=== PATIENT | male | born 2000 | race Caucasian/White ===

== ENCOUNTER 2020-01-29 20:35 | Inpatient (IN) | payer OTHER ==
[~2020-01-29] VITALS: Ht 182.9 cm; Wt 105.1 kg
[2020-01-29] MEDS ORDERED: IBUPROFEN 600 MG TAB PO ONE (21:15)
[2020-01-29 21:32] LABS: HEMATOCRIT 44.4 % (42.0-52.0); HEMOGLOBIN 15.8 g/dl (13.5-17.5); MEAN CORPUSCULAR HGB CONC 35.6 g/dl (32.0-36.5); MEAN CORPUSCULAR VOLUME 84.4 fl (80.0-96.0); PLATELET COUNT, AUTOMATED 284 10^3/uL (150-450); RED BLOOD COUNT 5.26 10^6/uL (4.30-6.10); WHITE BLOOD COUNT 9.4 10^3/uL (4.0-10.0)
[2020-01-29 22:06] LABS: ACETAMINOPHEN LEVEL < 2.0 UG/ML (10.0-30.0); ALBUMIN 3.6 GM/DL (3.2-5.2); ALT/SGPT 37 U/L (12-78); BILIRUBIN,DIRECT 0.1 MG/DL (0.0-0.2); BILIRUBIN,TOTAL 0.4 MG/DL (0.2-1.0); BLOOD UREA NITROGEN 19 MG/DL (7-18); CALCIUM LEVEL 8.6 MG/DL (8.5-10.1); CARBON DIOXIDE LEVEL 24 MEQ/L (21-32); CHLORIDE LEVEL 107 MEQ/L (98-107); CREATININE FOR GFR 1.11 MG/DL (0.70-1.30); ETHYL ALCOHOL (ETHANOL) < 0.003 % (0.000-0.010); GLUCOSE, FASTING 114 MG/DL (70-100); POTASSIUM SERUM 3.6 MEQ/L (3.5-5.1); SALICYLATE LEVEL 1.8 MG/DL (5.0-30.0); SODIUM LEVEL 139 MEQ/L (136-145); TOTAL PROTEIN 6.4 GM/DL (6.4-8.2)
[2020-01-29 22:41] LABS: AMPHETAMINES LEVEL URINE NEGATIVE (NEGATIVE); BARBITURATES URINE NEGATIVE (NEGATIVE); BENZODIAZEPINES URINE NEGATIVE (NEGATIVE); CANNABINOIDS URINE NEGATIVE (NEGATIVE); COCAINE METABOLITE URINE NEGATIVE (NEGATIVE); METHADONE URINE NEGATIVE (NEGATIVE); OPIATES URINE NEGATIVE (NEGATIVE); PHENCYCLIDINE URINE NEGATIVE (NEGATIVE)
[2020-01-30] MEDS ORDERED: MOM 30ML SUSPENSION UDC PO PRN (01:30)
[2020-01-30] MEDS ORDERED: ACETAMINOPHEN TAB 650MG DOSE (2X325MG) PO PRN (01:30)
[2020-01-30] MEDS ORDERED: traZODone 50 MG TAB PO PRN (01:30)
[2020-01-30] MEDS ORDERED: MAALOX 30 ML SUSP *UDC PO PRN (01:30)
[2020-01-30 05:21] VITALS: BP 143/77
[2020-01-30 06:34] VITALS: BP 143/77
--- NOTE | 2020-01-30 09:15 | HPEPDOC ---
General Date of Admission January 30, 2020 at 01:23 Date of Service: January 30, 2020 Chief Complaint The patient is a 19-year-old male who presented to the hospital with suicidal ideation History of Present Illness Patient is a 19-year-old male with no significant past medical history who presented to the hospital after experiencing depressed mood and suicidal ideation. Patient was admitted inpatient mental health unit under the care of psychiatry. Hospitalist service was consult for medical screening evaluation. Currently patient denies any headache, nausea, vomiting, chest pain, shortness of breath, palpitations, cough, abdominal pain, constipation, diarrhea, discomfort with urination or any recent fevers or chills. Patient reports that her appetite is normal and they have not experienced any recent changes in her weight. Home Medications No Active Prescriptions or Reported Meds Allergies Coded Allergies: epinephrine (Verified Allergy, Unknown, 01/29/20) Past Medical History Medical History Patient denies any prior medical history Surgical History Patient denies any prior surgical history He does report that he was advised to get a fistula around his umbilicus corrected almost 1 year ago Family History - Mother with history of hypoglycemia - Father with an unknown past medical history - No history of malignancies Social History - Denies the use of illicit drugs; patient reports associated use of alcohol. He has been a smoker of less than one PPD for 1 year - Denies recent travel or sick contacts - Lives alone - Occupation; patient was in the in [employer] Review of Systems Other systems 10 point review of systems complete, all negative otherwise stated in HPI Vital Signs - Vitals: BP 143/77, HR 69, RR 14, Sat 99%RA, Temp 96.8F - General: Lying in bed, Appears comfortable, Speaking in full sentences, AAOx3 - HEENT: NC, AT, PERRLA - CVS: RRR, +S1S2 - Lungs: Fair air entry bilaterally, No appreciable wheezing / rales / rhonchi - Abdomen: Soft, Non-distended, Non-tender, umbilicus does not reveal any evidence of discharge - Extremities: No lower extremity edema, No calf tenderness - Neuro: No focal motor or sensory deficit - Skin: No visible rashes Laboratory Data Labs 24H Laboratory Tests 2 01/29/20 21:22: Nucleated Red Blood Cells % (auto) 0.0, Anion Gap 8, Calcium Level 8.6, Total Bilirubin 0.4, Direct Bilirubin 0.1, Aspartate Amino Transf (AST/SGOT) 45H, Alanine Aminotransferase (ALT/SGPT) 37, Alkaline Phosphatase 66, Total Protein 6.4, Albumin 3.6, Albumin/Globulin Ratio 1.29, Thyroid Stimulating Hormone (TSH) 0.960, Salicylates Level 1.8L, Acetaminophen Level < 2.0L, Ethyl Alcohol Level < 0.003 01/29/20 22:03: Urine Opiates Screen NEGATIVE, Urine Methadone Screen NEGATIVE, Urine Barbiturates Screen NEGATIVE, Urine Phencyclidine Screen NEGATIVE, Urine Amphetamines Screen NEGATIVE, Urine Benzodiazepines Screen NEGATIVE, Urine Cocaine Metabolite Screen NEGATIVE, Urine Cannabinoids Screen NEGATIVE CBC/BMP Laboratory Tests 01/29/20 21:22 Plan / VTE VTE Prophylaxis Ordered?: Yes Plan Plan Suicidal ideation - Patient was admitted inpatient mental health and under the care of psychiatry - This is currently being managed by primary psychiatric team Elevation of AST - Will check hepatitis profile - Will have outpatient follow-up with primary care provider DVT prophylaxis - c/w early ambulation Female roller picker was present throughout the duration of this history and physical examination Thank you for this consultation; please reconsult as needed AMBREEN SWEENEY MD January 30, 2020 09:15
[2020-01-30] MEDS: NICOTINE 21MG/24HR 1 EA TRANSDERMAL TD SCH (09:18)
--- NOTE | 2020-01-30 11:51 | MHHPEPDOC ---
[facility] History & Physical History and Physical DATE OF ADMISSION: January 30, 2020 at 01:23 New Patient Wilfredo Rodriguez MRN: N/A Date of : N/A Date of Service: 01/30/2020 Chief Complaint "I am just suicidal, not crazy." History of Present Illness The patient a 19-year-old young man with no notable psychiatric history, presents reporting that he is suicidal and has been for many years. He reports that he has become upset and irritated as he has been told to engage with doing his chores and the chain of command is unpleased for his inability to take care of himself and to attend to his needs. The patient was brought in after he reported suicidal ideation to his chain of command. During the evaluation multiple times, he attempts to relay that he has tried to commit suicide but subsequently retracts it multiple times when clarified. Attempting to advertise his suicidality, but denies any specific depressive symptoms. He generally reports that he is upset with his chain of command and wants to leave the . Review Of Systems Depression: As above. Anxiety: As above. Marilynn: The patient denies any episodes of euphoria/dysphoria associated with d ecreased need for sleep, hedonism, talkatively or impulsivity lasting longer than 5 days. Psychotic: The patient denies any experiences of auditory or visual hallucinations. They deny any episodes of paranoia or delusional thinking in the past. Trauma: The patient denies any traumatic events associated with nightmares or intrusive thoughts. Borderline: The patient screens negative for borderline personality at this junction. Past Psychiatric History Has no history of depression. No history of inpatient admissions, medication trials and is not currently followed up. No history of suicide attempts that he specifically states other than ideation. Allergies Please see below. Family Psychiatric History Reports a family history of depression. Social History Grew up in [facility]. Reports growing up without a father. He joined the . Reports no history of trauma or abuse, however, pauses when discussing. He is currently in trouble with his chain of command. He is an active duty soldier. Graduated high school. Substance Abuse History The patient denies any excessive alcohol use, tobacco or illicit drug use, denies history of substance use treatment. Medical History Patient has no significant past medical history. Mental Status Examination General: Poor hygiene Speech: Spontaneous and fluid Thought processes: Linear and logical MSK: Smooth and coordinated gait, no signs of tremors or involuntary orofacial movements Thought content: Focused on getting his [employer] book. Abstract reasoning, and computation: Intact Description of associations: Intact Description of abnormal or psychotic thoughts: Denies any suicidal or homicidal ideation. Denies any auditory or visual hallucinations. Does not appear to be responding to internal stimuli. Does not appear to be endorsing any bizarre or paranoid ideation. Judgment: Limited Insight: Limited Orientation: Alert and orientated 3 Cognition: Grossly normal Recent and remote memory: Intact Attention span and concentration: Intact Fund of knowledge: Adequate Mood: "okay" Affect: Mildly dysthymic and not interested. Diagnoses Unspecified depressive disorder Malingering versus factitious Unspecified personality disorder Assessment and Plan Unspecified depressive disorder: Discussed with patient options, wishes to only do therapy, does not want to try medicines. Symptoms are highly atypical for depression and suicidality as his ideation remains unusual, will continue to evaluate. Unspecified personality disorder: Likely has chronic traits of cluster B with multiple splitting and generally a child-like attitude by nursing staff report. Disposition Patient will be retained further on an inpatient admission in order to fully evaluate his suicidality, although it is concerning for malignering or factitious disorder. We will ascertain fully before discharge. Problem List 1. Risk for suicide. 2. Ineffective coping. Initial Treatment Plan 1. Patient was admitted on a 9.39 legal status. 2. Complete history was obtained. 3. With patients permission, family will be contacted and database will be expanded. 4. Patients medication regimen will be reviewed and changed accordingly. 5. Patient will be provided with protected environment. 6. Patient will be treated with individual, group, and milieu therapies. 7. Patient will receive supportive psych-education. 8. Discharge planning will commence immediately. 9. Outpatient follow-up treatment will be strongly recommended. 10. The initial treatment plan will focus initially on: Estimated Length Of Stay 3 days. Time Spent 70 minutes with greater than 50% of time spent on counseling/coordination of care. Saturday Vital Signs Vital Signs Date Time Temp Pulse Resp B/P (MAP) Pulse Ox O2 Delivery O2 Flow Rate FiO2 01/30/20 10:11 Room Air 01/30/20 06:34 96.8 69 14 143/77 (99) 99 Laboratory Data 24H Labs Laboratory Tests 2 01/29/20 21:22: Nucleated Red Blood Cells % (auto) 0.0, Anion Gap 8, Calcium Level 8.6, Total Bilirubin 0.4, Direct Bilirubin 0.1, Aspartate Amino Transf (AST/SGOT) 45H, Alanine Aminotransferase (ALT/SGPT) 37, Alkaline Phosphatase 66, Total Protein 6.4, Albumin 3.6, Albumin/Globulin Ratio 1.29, Thyroid Stimulating Hormone (TSH) 0.960, Salicylates Level 1.8L, Acetaminophen Level < 2.0L, Ethyl Alcohol Level < 0.003 01/29/20 22:03: Urine Opiates Screen NEGATIVE, Urine Methadone Screen NEGATIVE, Urine Bar biturates Screen NEGATIVE, Urine Phencyclidine Screen NEGATIVE, Urine Amphetamines Screen NEGATIVE, Urine Benzodiazepines Screen NEGATIVE, Urine Cocaine Metabolite Screen NEGATIVE, Urine Cannabinoids Screen NEGATIVE CBC/BMP Laboratory Tests 01/29/20 21:22 Medications No Active Prescriptions or Reported Meds Allergies Coded Allergies: epinephrine (Verified Allergy, Unknown, 01/29/20) ANGELY RAUSCH DO January 30, 2020 11:51
[2020-01-30 16:17] VITALS: BP 125/74
[2020-01-31 06:33] VITALS: BP 130/58
[2020-01-31] MEDS: NICOTINE 21MG/24HR 1 EA TRANSDERMAL TD SCH (08:13)
--- NOTE | 2020-01-31 11:36 | MHIPNPDOC ---
[facility] Progress Note Progress Note Inpatient Progress Note Wilfredo Rodriguez MRN: N/A Date of : N/A Date of Service: 01/31/2020 History of Present Illness The patient a 19-year-old young man with no notable psychiatric history, presents reporting that he is suicidal and has been for many years. He reports that he has become upset and irritated as he has been told to engage with doing his chores and the chain of command is unpleased for his inability to take care of himself and to attend to his needs. The patient was brought in after he reported suicidal ideation to his chain of command. During the evaluation multiple times, he attempts to relay that he has tried to commit suicide but subsequently retracts it multiple times when clarified. Attempting to advertise his suicidality, but denies any specific depressive symptoms. He generally reports that he is upset with his chain of command and wants to leave the . Interval History The patient is met with today. He reports that he is interested in trying the antidepressant. He continues to try to get his [employer] book despite it's an appropriate content. He continues to spend the majority of the interview trying to argue for having his [employer] book. He is explained that it's inappropriate material as well as being a heavy object that could be potentially used as a weapon. The patient has been uninvolved in treatment, not attending groups and primarily is uninterested with a relatively childish affect. Review Of Systems Denies any particular physical complaints at this time. Psychotherapy None on this visit. Vital Signs Reviewed. Mental Status Examination General: Poor hygiene Speech: Spontaneous and fluid Thought processes: Linear and logical MSK: Smooth and coordinated gait, no signs of tremors or involuntary orofacial movements Thought content: Focused on getting his [employer] book. Abstract reasoning, and computation: Intact Description of associations: Intact Description of abnormal or psychotic thoughts: Continues to report nonspecific suicidal thoughts without elaborating Judgment: Limited Insight: Limited Orientation: Alert and orientated 3 Cognition: Grossly normal Recent and remote memory: Intact Attention span and concentration: Intact Fund of knowledge: Adequate Mood: "okay" Affect: Mildly dysthymic and not interested Diagnoses Unspecified depressive disorder Malingering versus factitious Unspecified personality disorder Assessment and Plan Unspecified depressive disorder: Start Wellbutrin 150 mg extended release daily. Unspecified personality disorder: Likely has chronic traits of cluster B with multiple splitting and generally a child-like attitude by nursing staff report. The risks, benefits as well as common side effects as well as alternative treatments (including non-treatment) were discussed with the patient both in general and for their particular case. The patient selected this option out of a range. Disposition Will continue patient on involuntary. Will attempt to get more information from [facility] tomorrow. Time Spent 15 minutes. Saturday Vital Signs Vital Signs Date Time Temp Pulse Resp B/P (MAP) Pulse Ox O2 Delivery O2 Flow Rate FiO2 01/31/20 08:46 Room Air 01/31/20 06:33 97.5 74 16 130/58 (82) 98 Current Medications Current Medications Medications (Trade) Dose Ordered Sig/Sandra Route PRN Reason Start Time Stop Time Status Last Admin Dose Admin Acetaminophen (Tylenol Tab) 650 mg Q6HP PRN PO HEADACHE or DISCOMFORT 01/30/20 01:30 Al Hydrox/Mg Hydrox/Simethicone (Mylanta) 30 ml Q4HP PRN PO HEARTBURN/INDIGESTION 01/30/20 01:30 Home Med (Med Rec Complete!) ASDIRECTED XX 01/30/20 01:15 01/30/20 01:03 DC Magnesium Hydroxide (Milk Of Magnesia) 30 ml DAILYPRN PRN PO CONSTIPATION 01/30/20 01:30 Nicotine (Nicoderm Cq 21mg) 1 patch DAILY TD 01/30/20 09:00 01/31/20 08:13 Trazodone HCl (Desyrel) 50 mg QHSP PRN PO INSOMNIA 01/30/20 01:30 Allergies Coded Allergies: epinephrine (Verified Allergy, Unknown, 01/29/20) ANGELY RAUSCH DO January 31, 2020 11:36
[2020-01-31] MEDS ORDERED: buPROPion **XL** TABLET 150MG (WELLBUTRIN XL) PO ONE (13:30)
[2020-01-31 15:23] VITALS: BP 109/56
[2020-02-01 06:26] VITALS: BP 144/68
[2020-02-01] MEDS: NICOTINE 21MG/24HR 1 EA TRANSDERMAL TD SCH ×2 (08:34→17:36)
[2020-02-01] MEDS: buPROPion **XL** TABLET 150MG (WELLBUTRIN XL) PO SCH (08:34)
--- NOTE | 2020-02-01 09:51 | MHIPNPDOC ---
[facility] Progress Note Progress Note Inpatient Progress Note Wilfredo Rodriguez MRN: N/A Date of : N/A Date of Service: 02/01/2020 History of Present Illness The patient a 19-year-old young man with no notable psychiatric history, presents reporting that he is suicidal and has been for many years. He reports that he has become upset and irritated as he has been told to engage with doing his chores and the chain of command is unpleased for his inability to take care of himself and to attend to his needs. The patient was brought in after he reported suicidal ideation to his chain of command. During the evaluation multiple times, he attempts to relay that he has tried to commit suicide but subsequently retracts it multiple times when clarified. Attempting to advertise his suicidality, but denies any specific depressive symptoms. He generally reports that he is upset with his chain of command and wants to leave the . Interval History The patient is met with today. He reports that he feels that the medication is making him less suicidal but makes them feel "homicidal" towards others. When as ked more specifically the patient states "I am not comfortable describing that. He appears generally malinger on the unit and is highly interested in getting his [employer] and [employer] books. Being highly uninterested in treatment, otherwise he appears to engage superficially in treatment on our unit and describes the nurses how he does not like being in the and hopes that bree cota will not be returning to the due to mental health problems. Review Of Systems Denies any specific side effects physically. Psychotherapy None on this visit. Vital Signs Reviewed. Mental Status Examination General: Poor hygiene Speech: Spontaneous and fluid Thought processes: Linear and logical MSK: Smooth and coordinated gait, no signs of tremors or involuntary orofacial movements Thought content: Focused on getting his [employer] book. Abstract reasoning, and computation: Intact Description of associations: Intact Description of abnormal or psychotic thoughts: Continues to report nonspecific suicidal thoughts without elaborating Judgment: Limited Insight: Limited Orientation: Alert and orientated 3 Cognition: Grossly normal Recent and remote memory: Intact Attention span and concentration: Intact Fund of knowledge: Adequate Mood: "okay" Affect: Mildly dysthymic and not interested Diagnoses Unspecified depressive disorder Malingering versus factitious Unspecified personality disorder Assessment and Plan Unspecified depressive disorder: Start Wellbutrin 150 mg extended release daily. Unspecified personality disorder: Likely has chronic traits of cluster B with multiple splitting and generally a child-like attitude by nursing staff report. Disposition Likely discharge early this week. Time Spent 15 minutes. Saturday Vital Signs Vital Signs Date Time Temp Pulse Resp B/P (MAP) Pulse Ox O2 Delivery O2 Flow Rate FiO2 02/01/20 06:26 98.3 63 18 144/68 (93) 01/31/20 08:46 Room Air 01/31/20 06:33 98 Current Medications Current Medications Medications (Trade) Dose Ordered Sig/Sandra Route PRN Reason Start Time Stop Time Status Last Admin Dose Admin Acetaminophen (Tylenol Tab) 650 mg Q6HP PRN PO HEADACHE or DISCOMFORT 01/30/20 01:30 Al Hydrox/Mg Hydrox/Simethicone (Mylanta) 30 ml Q4HP PRN PO HEARTBURN/INDIGESTION 01/30/20 01:30 Bupropion HCl (Wellbutrin Xl) 150 mg DAILY PO 02/01/20 09:00 02/01/20 08:34 Home Med (Med Rec Complete!) ASDIRECTED XX 01/30/20 01:15 01/30/20 01:03 DC Magnesium Hydroxide (Milk Of Magnesia) 30 ml DAILYPRN PRN PO CONSTIPATION 01/30/20 01:30 Nicotine (Nicoderm Cq 21mg) 1 patch DAILY TD 01/30/20 09:00 01/31/20 08:13 Trazodone HCl (Desyrel) 50 mg QHSP PRN PO INSOMNIA 01/30/20 01:30 Allergies Coded Allergies: epinephrine (Verified Allergy, Unknown, 01/29/20) ANGELY RAUSCH DO February 01, 2020 09:51
[2020-02-01 10:44] LABS: HEPATITIS B SURFACE ANTIGEN NEGATIVE (NEGATIVE)
[2020-02-01 11:12] LABS: HEPATITIS B CORE ANTIBODY IGM NEGATIVE (NEGATIVE)
[2020-02-01 11:14] LABS: HEPATITIS A ANTIBODY IGM NEGATIVE (NEGATIVE)
[2020-02-01 16:39] VITALS: BP 140/78
[2020-02-02 06:23] VITALS: BP 108/58
[2020-02-02] MEDS: NICOTINE 21MG/24HR 1 EA TRANSDERMAL TD SCH ×2 (08:36→11:50)
[2020-02-02] MEDS: buPROPion **XL** TABLET 150MG (WELLBUTRIN XL) PO SCH (08:36)
--- NOTE | 2020-02-02 09:23 | MHIPNPDOC ---
[facility] Progress Note Progress Note Inpatient Progress Note Wilfredo Rodriguez MRN: N/A Date of : N/A Date of Service: 02/02/2020 History of Present Illness The patient a 19-year-old young man with no notable psychiatric history, presents reporting that he is suicidal and has been for many years. He reports that he has become upset and irritated as he has been told to engage with doing his chores and the chain of command is unpleased for his inability to take care of himself and to attend to his needs. The patient was brought in after he reported suicidal ideation to his chain of command. During the evaluation multiple times, he attempts to relay that he has tried to commit suicide but subsequently retracts it multiple times when clarified. Attempting to advertise his suicidality, but denies any specific depressive symptoms. He generally reports that he is upset with his chain of command and wants to leave the . Interval History Patient is met with today. He reports he feels somewhat better. He reports that the medication makes him feel "more mellow." He reports his ideation has impro toya and that he no longer thinks of ways comes off but simply has more hopelessness. He has generally been unengaged in treatment reading his [employer] book for the majority of his time here. Review Of Systems General: Denies fever or appetite changes Cardiovascular: Denies Chest pain or palpations GI: Denies Nausea, vomiting, or bowel changes Respiratory: Denies shortness of breath or cough Neuro: Denies dizziness, tremors Derm: Denies any rashes or pruritus : Denies any dysuria or urinary problems MSK: Denies any muscle tightness or stiffness HEENT: Denies any vision changes or headaches Psychotherapy None on this visit. Vital Signs Reviewed. Mental Status Examination General: Poor hygiene Speech: Spontaneous and fluid Thought processes: Linear and logical MSK: Smooth and coordinated gait, no signs of tremors or involuntary orofacial movements Thought content: Generally uninterested. Abstract reasoning, and computation: Intact Description of associations: Intact Description of abnormal or psychotic thoughts: Reports some hopelessness but no overt suicidality. Judgment: Limited Insight: Limited Orientation: Alert and orientated 3 Cognition: Grossly normal Recent and remote memory: Intact Attention span and concentration: Intact Fund of knowledge: Adequate Mood: "okay" Affect: Less dysthymic. Diagnoses Unspecified depressive disorder Malingering versus factitious Unspecified personality disorder Assessment and Plan Unspecified depressive disorder: Continue Wellbutrin 150 mg extended release daily. Unspecified personality disorder: Potentially malingering. Disposition Discharge tomorrow. Time Spent 15 minutes. Saturday Vital Signs Vital Signs Date Time Temp Pulse Resp B/P (MAP) Pulse Ox O2 Delivery O2 Flow Rate FiO2 02/02/20 06:23 97.6 62 12 108/58 (75) Room Air 01/31/20 06:33 98 Current Medications Current Medications Medications (Trade) Dose Ordered Sig/Sandra Route PRN Reason Start Time Stop Time Status Last Admin Dose Admin Acetaminophen (Tylenol Tab) 650 mg Q6HP PRN PO HEADACHE or DISCOMFORT 01/30/20 01:30 Al Hydrox/Mg Hydrox/Simethicone (Mylanta) 30 ml Q4HP PRN PO HEARTBURN/INDIGESTION 01/30/20 01:30 Bupropion HCl (Wellbutrin Xl) 150 mg DAILY PO 02/01/20 09:00 02/02/20 08:36 Home Med (Med Rec Complete!) ASDIRECTED XX 01/30/20 01:15 01/30/20 01:03 DC Magnesium Hydroxide (Milk Of Magnesia) 30 ml DAILYPRN PRN PO CONSTIPATION 01/30/20 01:30 Nicotine (Nicoderm Cq 21mg) 1 patch DAILY TD 01/30/20 09:00 02/01/20 17:36 Trazodone HCl (Desyrel) 50 mg QHSP PRN PO INSOMNIA 01/30/20 01:30 Allergies Coded Allergies: epinephrine (Verified Allergy, Unknown, 01/29/20) ANGELY RAUSCH DO February 02, 2020 09:23
[2020-02-02 16:03] VITALS: BP 133/62
[2020-02-03 06:08] VITALS: BP 140/72
[2020-02-03] MEDS: NICOTINE 21MG/24HR 1 EA TRANSDERMAL TD SCH (08:49)
[2020-02-03] MEDS: buPROPion **XL** TABLET 150MG (WELLBUTRIN XL) PO SCH (08:49)
--- NOTE | 2020-02-03 09:59 | MHDSPDOC ---
[facility] Discharge Summary Discharge Summary DATE OF ADMISSION: January 30, 2020 at 01:23 DATE OF DISCHARGE: 02/03/2020 Discharge Wilfredo Rodriguez MRN: [id number] Date of : N/A Date of Service: 02/03/2020 Diagnoses Unspecified depressive disorder. 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 Unspecified personality disorder. History of Present Illness The patient a 19-year-old young man with no notable psychiatric history, presents reporting that he is suicidal and has been for many years. He reports that he has become upset and irritated as he has been told to engage with doing his chores and the chain of command is unpleased for his inability to take care of himself and to attend to his needs. The patient was brought in after he reported suicidal ideation to his chain of command. During the evaluation multiple times, he attempts to relay that he has tried to commit suicide but subsequently retracts it multiple times when clarified. Attempting to advertise his suicidality, but denies any specific depressive symptoms. He generally reports that he is upset with his chain of command and wants to leave the . Consultants Involved Hospitalist/PCP screening Treatment and Progress On The Unit The patient was admitted to the inpatient mental health unit where he was noticed to have some chronic suicidal thoughts. However, these were quite unusual and his stories became quite elaborate attempting to apparently justify his presentation. Although, he reported suicidal ideation, on observation he did not generally express symptoms consistent with a fairly depressed individual. He was started on Wellbutrin 150 mg daily after discussion. He appeared more fixated on reading his [employer] books than he did on engaging in treatment. It was noted by staff that he generally stated that he wasn't interested in leaving the and that he felt the obligations were too m uch for him. He generally improved and although he made unusual statements when these were not engaged with, he subsequently became less interested in staying and left of his own accord without suicidal thoughts. He had no behavioral problems otherwise and had generally an uneventful admission. Discharge Assessment 19-year-old young man with possibly factitious disorder or malingering secondary to wanting to get out of the presents with highly atypical symptoms. He is treated with Wellbutrin, but there does not appear to be objective finding suggesting a change in his insight or judgment as he did not present with significant depressive symptoms to start with. The patient at the time of discharge did not meet criteria for involuntary admission/extension due to having a likely baseline mental status exam, baseline insight into the situation, They are engaged in the discharge process, as well as being friendly and amenable in behavioral control and havent been engaging in any observed concerning behavior or ideation recently. They decline voluntary extension/admission at this time and must be discharged in good bill, as Jyothi matias to make a case for holding the patient against their will. They may have historical risk factors of admissions and other interactions with psychiatry however, those are not modifiable from a clinical perspective. The patient will need to be discharged in good bill. Mental Status Examination General: Well dressed with good hygiene Speech: Spontaneous and fluid Thought processes: Linear and logical MSK: Smooth and coordinated gait, no signs of tremors or involuntary orofacial movements Thought content: Future orientated Abstract reasoning, and computation: Intact Description of associations: Intact Description of abnormal or psychotic thoughts: Denies any suicidal or homicidal ideation. Denies any auditory or visual hallucinations. Does not appear to be responding to internal stimuli. Does not appear to be endorsing any bizarre or paranoid ideation. Judgment: Chronically limited. Insight: Chronically limited. Orientation: Alert and orientated 3 Cognition: Grossly normal Recent and remote memory: Intact Attention span and concentration: Intact Fund of knowledge: Adequate Mood: "okay" Affect: Euthymic with a full range Follow Up The social work team worked during the predischarge meeting in order to evaluate for further issues of lethality address them fully before discharge. They worked on safety planning with the patient's family members in order to ensure that the patient will have a safe and effective discharge. Time Spent The amount of time spent in the coordination of care for this patient was appr oximately 45 minutes. Saturday Vital Signs/I&Os Vital Signs Date Time Temp Pulse Resp B/P (MAP) Pulse Ox O2 Delivery O2 Flow Rate FiO2 02/03/20 06:08 97.9 66 18 140/72 (94) 02/02/20 06:23 Room Air 01/31/20 06:33 98 Medications Scheduled Bupropion Hcl (Bupropion Xl) 150 Mg Tab.er.24h, 150 MG PO DAILY for mood for 7 Days, #7 Nicotine (Nicotine Patch) 21 Mg Patch.td24, 1 PATCH TD DAILY for tobacco for 30 Days, #30 Allergies Coded Allergies: epinephrine (Verified Allergy, Unknown, 01/29/20) ANGELY RAUSCH DO February 03, 2020 09:59
[2020-02-03] MEDS ORDERED: NICO21PAT TD (10:19)
[2020-02-03] MEDS ORDERED: BUPR150T3 PO (10:19)
== END 2020-02-03 13:07 | disposition home or self-care (01) | DRG 881 ==
LOC: M ED 20:35 → M ED INP 01-30 01:23 → M PSY 01-30 05:15
PROVIDERS: ADMIT Psychiatry & Neurology Addiction Medicine; ATTEND Psychiatry & Neurology Addiction Medicine
DX: F32.9 Major depressive disorder, single episode, unspecified (principal); F60.9 Personality disorder, unspecified; F68.11 Factitious disorder imposed on self, with predominantly psychological signs and symptoms; Z88.8 Allergy status to other drugs, medicaments and biological substances; F17.200 Nicotine dependence, unspecified, uncomplicated; Z56.89 Other problems related to employment